=== PATIENT | male | born 1970 | race Caucasian/White ===

== ENCOUNTER 2023-09-21 14:15 | Emergency (ER) | payer OTHER ==
--- NOTE | 2023-09-21 14:33 | ED ---
Abdominal Pain HPI - General Source: patient, RN notes reviewed Mode of arrival: ambulatory Limitations: no limitations <Chris Lara - Last Filed: 09/21/23 14:32> <Abdullahi Hernandez - Last Filed: 09/21/23 17:21> - General Stated Complaint: abd pain Time Seen by Provider: 09/21/23 14:32 - History of Present Illness Initial Comments: Patient is a 53-year-old male presented to ER with chief complaint of abdominal pain. Patient has a history significant of pancreatic cancer. Patient states for the past couple of days he has had an increase in abdominal pain. He has tried omeprazole and Zantac without relief. He also states a recent episode of hastings/white stool. Reports chills, nausea but denies vomiting. (Chris Lara) - Related Data Allergies Allergy/AdvReac Type Severity Reaction Status Date / Time No Known Allergies Allergy Verified 09/21/23 15:11 Review of Systems ROS Other: All systems not noted in ROS Statement are negative. <Chris Lara - Last Filed: 09/21/23 14:32> ROS Other: All systems not noted in ROS Statement are negative. <Abdullahi Hernandez - Last Filed: 09/21/23 17:21> ROS Statement: Those systems with pertinent positive or pertinent negative responses have been documented in the HPI. General Exam <Chris Lara - Last Filed: 09/21/23 14:32> - General Exam Comments Initial Comments: Visual Physical Exam Vital signs reviewed General: Ill-appearing no apparent distress Head: Normocephalic, atraumatic Eyes: PERRLA, EOMI ENT: Airway patent Chest: Nonlabored breathing Skin: No visual rash, normal skin tone Neuro: Alert and oriented 3 Musculoskeletal: No gross abnormalities (Chris Lara) Course Vital Signs 09/21/23 15:05 Temperature 98.1 F Pulse Rate 82 Respiratory 18 Rate Blood Pressure 137/85 O2 Sat by Pulse 100 Oximetry Medical Decision Making <Chris Lara - Last Filed: 09/21/23 14:32> - Lab Data Result diagrams: 09/21/23 16:08 09/21/23 16:08 - EKG Data -: EKG Interpreted by Me (EKG sinus 81 MO 136 MO 89 QTc 401) <Abdullahi Hernandez - Last Filed: 09/21/23 17:21> - Medical Decision Making I performed the quick note portion of this chart. Electronically signed by Chris Lara PA-C (Chris Lara) - Lab Data Lab Results 09/21/23 09/21/23 09/21/23 Range/Units 16:08 16:08 16:08 WBC 4.9 (3.8-10.6) k/uL RBC 3.66 L (4.30-5.90) m/uL Hgb 12.6 L (13.0-17.5) gm/dL Hct 37.1 L (39.0-53.0) % MCV 101.2 H (80.0-100.0) fL MCH 34.3 (25.0-35.0) pg MCHC 33.9 (31.0-37.0) g/dL RDW 13.7 (11.5-15.5) % MPV 8.6 Macrocytosis Slight Sodium 139 (137-145) mmol/L Potassium 4.2 (3.5-5.1) mmol/L Chloride 108 H (98-107) mmol/L Carbon Dioxide 28 (22-30) mmol/L Anion Gap 3 mmol/L BUN 13 (9-20) mg/dL Creatinine 0.60 L (0.66-1.25) mg/dL Est GFR (CKD-EPI)AfAm >90 (>60 ml/min/1.73 sqM) Est GFR (CKD-EPI)NonAf >90 (>60 ml/min/1.73 sqM) Glucose 113 H (74-99) mg/dL Plasma Lactic Acid Kp 0.7 (0.7-2.0) mmol/L Calcium 8.9 (8.4-10.2) mg/dL Phosphorus 3.4 (2.5-4.5) mg/dL Magnesium 2.0 (1.6-2.3) mg/dL Total Bilirubin 0.6 (0.2-1.3) mg/dL AST 23 (17-59) U/L ALT 18 (4-49) U/L Alkaline Phosphatase 91 (38-126) U/L Total Protein 6.2 L (6.3-8.2) g/dL Albumin 3.8 (3.5-5.0) g/dL Amylase 31 (30-110) U/L Lipase <10 L (23-300) U/L Disposition <Chris Lara - Last Filed: 09/21/23 14:32> Is patient prescribed a controlled substance at d/c from ED?: No Time of Disposition: 17:20 <Abdullahi Hernandez - Last Filed: 09/21/23 17:21> Clinical Impression: Abdominal pain Disposition: HOME SELF-CARE Condition: Fair Instructions (If sedation given, give patient instructions): Abdominal Pain (ED) Referrals: Nonstaff,Physician [Primary Care Provider] - 1-2 days
[2023-09-21 15:20] VITALS: RESP 18
[2023-09-21] MEDS: SODIUM CHLORIDE 0.9% 1,000 ML IV STA (16:16)
[2023-09-21] MEDS: MAG HYDROX/AL HYDROX/SIMETH 30 ML, HYOSCYAMINE ELIXIR 10 ML PO STA (16:17)
[2023-09-21] MEDS: PROCHLORPERAZINE INJ 10 MG/2 ML VIAL IVP STA (16:18)
[2023-09-21 16:21] LABS: HCT 37.1 % (39.0-53.0); HGB 12.6 gm/dL (13.0-17.5); MCH 34.3 pg (25.0-35.0); MCHC 33.9 g/dL (31.0-37.0); MCV 101.2 fL (80.0-100.0); Macrocytosis Slight; Mean Platelet Volume 8.6; RBC 3.66 m/uL (4.30-5.90); RDW 13.7 % (11.5-15.5); WBC 4.9 k/uL (3.8-10.6)
[2023-09-21] MEDS: HYDROmorphone 1 MG/ML 1 ML SYRINGE IVP STA (16:21)
[2023-09-21 16:32] LABS: ALT 18 U/L (4-49); AST 23 U/L (17-59); African American GFR (CKD) >90 (>60 ml/min/1.73 sqM); Albumin 3.8 g/dL (3.5-5.0); Alkaline Phosphatase 91 U/L (38-126); Amylase 31 U/L (30-110); Anion Gap 3 mmol/L; Blood Urea Nitrogen 13 mg/dL (9-20); Calcium 8.9 mg/dL (8.4-10.2); Carbon Dioxide 28 mmol/L (22-30); Chloride 108 mmol/L (98-107); Glucose 113 mg/dL (74-99); Lipase <10 U/L (23-300); Non-African American GFR(CKD) >90 (>60 ml/min/1.73 sqM); Phosphorus 3.4 mg/dL (2.5-4.5); Potassium 4.2 mmol/L (3.5-5.1); Sodium 139 mmol/L (137-145); Total Bilirubin 0.6 mg/dL (0.2-1.3); Total Protein 6.2 g/dL (6.3-8.2)
--- NOTE | 2023-09-21 17:19 | CT ---
EXAMINATION TYPE: CT abdomen pelvis w con CT DLP: 688.1 mGycm, Automated exposure control for dose reduction was used. DATE OF EXAM: 09/21/2023 5:09 PM COMPARISON: None. CLINICAL INDICATION:Male, 53 years old with history of epigastric abd pain. hx pancreatic cancer; Epi gastric pain, hx of pancreatic cancer- stopped/refused radiation treatment TECHNIQUE: Axial CT of the abdomen and pelvis. Sagittal and coronal reformats were created on a [employer] workstation. Contrast used:100 cc mL of Isovue 300 with IV Contrast, (none if empty) Oral contrast used: without Oral Contrast (none if empty) FINDINGS: LOWER CHEST: Unremarkable ABDOMEN LIVER: Multiple subcentimeter hypoattenuating structures are demonstrated throughout the liver, which are too small to accurately characterize but statistically likely to represent simple hepatic cysts GALLBLADDER AND BILE DUCTS: Unremarkable. PANCREAS: Predominantly low attenuating mass centered at the pancreatic neck is identified. There is encasement of vasculature in the area including the celiac artery and superior mesenteric artery, the re is mild narrowing of the superior mesenteric artery throughout its course. SPLEEN: Slightly heterogenous appearance of the splenic parenchyma, likely related to phase of contra st. ADRENAL GLANDS: Unremarkable. KIDNEYS AND URETERS: No evidence of hydronephrosis or renal calculus. The ureters are unremarkable. PELVIS BLADDER: Unremarkable REPRODUCTIVE: Coarse calcifications of the prostate gland are identified. ABDOMEN & PELVIS STOMACH AND BOWEL: Stomach and duodenum are unremarkable. Scattered diverticula are noted throughout the colon. Mild diffuse colonic wall thickening is appreciated. No evidence of bowel obstruction. PERITONEUM/RETROPERITONEUM: No evidence of pneumoperitoneum or free fluid. VASCULATURE: Moderate atherosclerotic calcifications are present throughout the abdominal aorta and i ts branches. No evidence of aortic aneurysm. MUSCULOSKELETAL: No acute osseous abnormalities. Moderate disc degeneration changes are present throu ghout the thoracolumbar spine. LYMPH NODES: A few prominent gastrohepatic lymph nodes are identified. SOFT TISSUE/ABDOMINAL WALL: Unremarkable IMPRESSION: 1. Findings consistent with history of pancreatic mass with encasement of the surrounding vasculatur e as described. 2. Mild diffuse colonic wall thickening. Although a component may be related to underdistention, deve loping colitis can also have a similar appearance.
[2023-09-21 17:25] LABS: Platelet Count 96 k/uL (150-450)
[2023-09-21 17:57] VITALS: BP 145/87; PULSE 72; TEMP 98.3
[2023-09-21 18:24] LABS: Appearance,Urine Clear (Clear); Bilirubin,Urine Negative (Negative); Blood,Urine Moderate (Negative); Calcium Oxalate Crystals,Urine Rare /hpf; Color,Urine Yellow; Glucose,Urine (UA) Negative (Negative); Ketones,Urine Negative (Negative); Leukocyte Esterase,Urine Negative (Negative); Mucus,Urine Rare /hpf; Nitrite,Urine Negative (Negative); PH, Urine 6.5 (5.0-8.0); Protein,Urine Trace (Negative); RBC,Urine 174 /hpf (0-5); Urobilinogen,Urine <2.0 mg/dL (<2.0); WBC,Urine 1 /hpf (0-5)
[2023-09-21 18:52] LABS: Specific Gravity,Urine 1.049 (1.001-1.035)
== END 2023-09-21 17:54 | disposition home or self-care (01) ==
LOC: EC 14:15
DX: R10.9 Unspecified abdominal pain (principal)
CPT/HCPCS: 36415; 93005; 80053; 82150; 83605; 83690; 83735; 84100; 85027; 81001; 74177; 99284; 96374; 96375; 96361 ×2; J0780; J1170; Q9967